=== PATIENT | female | born 1995 | race Caucasian/White ===

== ENCOUNTER 2018-10-23 11:28 | Emergency (ER) | payer OTHER ==
[~2018-10-23] VITALS: Ht 172.7 cm; Wt 73.0 kg
[2018-10-23 11:39] VITALS: BP 128/72
[2018-10-23 13:40] LABS: CLARITY URINE CLEAR (CLEAR); COLOR URINE YELLOW (YELLOW); KETONES URINE NEGATIVE (NEGATIVE); LEUKOCYTE ESTERASE URINE NEGATIVE (NEGATIVE); NITRITE URINE NEGATIVE (NEGATIVE); OCCULT BLOOD URINE NEGATIVE (NEGATIVE); PH URINE 7.5 (4.5-8.0); PROTEIN URINE NEGATIVE (NEGATIVE); SPECIFIC GRAVITY URINE 1.007 (1.005-1.030); UROBILINOGEN URINE 0.2 E.U./dL (0.2-1.0)
== END 2018-10-23 15:25 | disposition left against medical advice (07) ==
LOC: ER 11:28
DX: R10.32 Left lower quadrant pain (principal); R10.2 Pelvic and perineal pain; M79.18 Myalgia, other site; K62.89 Other specified diseases of anus and rectum
CPT/HCPCS: 81025; 99283